=== PATIENT | female | born 1950 | race Asian ===

== ENCOUNTER 2016-12-06 15:41 | Emergency (ER) | payer MEDICARE, BC ==
[2016-12-06] MEDS ORDERED: OXYMETAZOLINE 0.05% NASAL 15 SPRAYS/15 ML BTL NASAL ONE (15:58)
--- NOTE | 2016-12-06 16:14 | ER NURSING DOCUMENTATION ---
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 Transition rh of care: Home. 15:52 Method Of Arrival: Walk In 15:55 Notified ED Physician of patient's arrival and CC Dr. Marinelli notified. nf Triage Assessment: 15:54 General: Appears in no apparent distress, Behavior is cooperative. Pain: Denies pain. rh EENT: Nares with bleeding noted bilaterally. Neuro: Level of Consciousness is awake, alert, obeys commands, Oriented to person, place, time, event. Historical: - Allergies: SULFA (SULFONAMIDES); Ciprofloxacin; - Home Meds: 1. Lisinopril Oral 2. sotalol Oral 3. Premarin Oral 4. Potassium Chloride Oral - PMHx: Hypertension; - PSHx: Hysterectomy; ; BOWEL RESECTION; - Tetanus: < 10 years. - Ebola Screening: : Patient negative for fever greater than or equal to 101.5 degrees Fahrenheit, and additional compatible Ebola Virus Disease symptoms. - Immunization history: Flu Vaccine < 1 year. - Social history: Smoking status: Patient states was never smoker of tobacco. Screenin:55 Infectious Disease Risk None. Abuse screen: Denies threats or abuse. Denies injuries rh from another. Nutritional screening: No deficits noted. Assessment: 15:55 See Triage Assessment done by same RN. Vital Signs: 15:55 BP 157 / 88; Pulse 73; Resp 16; Temp 97.3(TE); Pulse Ox 96% on R/A; Weight 63.5 kg; rh Height 5 ft. 5 in. (165.10 cm); Pain 0/10; 15:55 Body Mass Index 23.30 (63.50 kg, 165.10 cm) ED Course: 15:43 Patient arrived in ED. 15:43 Triage completed. 15:49 Ludmila Pizarro, RN is Primary Nurse. nf 15:52 Nosebleed Care Nasal Clamp Applied. 15:55 Notified ED Physician of patient's arrival and chief complaint. Dr. Marinelli notified. rh 15:55 Arm band placed on Bed in low position Call Light in Reach HOB Elevated Side rails up nf x1. 15:55 Valuables Remains with patient Patient has correct armband on for positive rh identification. Bed in low position. Call light in reach. 15:56 Door closed. Noise minimized. Lights dimmed. Moved to private room. Verbal reassurance nf given. Pillow given. Diet: Patient is NPO. 16:04 Jarred Marinelli MD is Attending Physician. tl1 Administered Medications: 15:50 Drug: Afrin Drops (0.05 %) 1 sprays; Route: Intranasal; Site: both nares; 16:09 Follow up: Response: Marked relief of symptoms nf Outcome: 16:07 Discharge ordered by . tl1 16:12 Discharged to home ambulatory. 16:12 Condition: improved 16:12 Discharge Assessment: Patient awake, alert and oriented x 3. No cognitive and/or functional deficits noted. Patient verbalized understanding of disposition instructions. 16:12 Discharge instructions given to patient, Instructed on discharge instructions, follow up and referral plans. Demonstrated understanding of instructions. 16:13 Patient left the ED. 12/07 18:27 Discharge F/U Call: Unable to reach: left voicemail: lc Signatures: Hannah Khalil RN RN lc Friel, Nicole, RN RN nf Leigh, Tom, MD MD tl1 Josefina Garner Carissa cj
--- NOTE | 2016-12-08 16:14 | ER PHYSICIAN DOCUMENTATION ---
Physician Documentation [facility] Name:Nova Pitt Age:66 yrs Sex:Female :1950 Arrival Date:12/06/2016 Time:15:41 Bed2 Private MD: Jarred Palmer Disposition: 12/08 05:44 Chart complete. tl1 Disposition: 12/06/16 16:07 Discharged to Home/Self Care. Impression: Anterior Epistaxis. - Condition is Good. - Discharge Instructions: EPISTAXIS (Adult). - Medical Reconciliation form form. - Follow up: Private Physician; When: 4- 6 days; Reason: Recheck today's complaints, Continuance of care. - Problem is new. - Symptoms have improved. HPI: 12/06 15:50 This 66 yrs old Female presents to ER via Walk In with complaints of tl1 Nose Bleed. 15:50 The patient presents with a nose bleed, that is apparently anterior. Onset: The tl1 symptom(s)/episode began/occurred suddenly, this morning. Associated signs and symptoms: The patient has no apparent associated signs or symptoms. Severity of symptoms: At their worst the symptoms were mild in the emergency department the symptoms are unchanged. The patient has experienced similar episodes in the past, several times. Historical: - Allergies: SULFA (SULFONAMIDES); Ciprofloxacin; - Home Meds: 1. Lisinopril Oral 2. sotalol Oral 3. Premarin Oral 4. Potassium Chloride Oral - PMHx: Hypertension; - PSHx: Hysterectomy; ; BOWEL RESECTION; - Tetanus: < 10 years. - Ebola Screening: : Patient negative for fever greater than or equal to 101.5 degrees Fahrenheit, and additional compatible Ebola Virus Disease symptoms. - Immunization history: Flu Vaccine < 1 year. - Social history: Smoking status: Patient states was never smoker of tobacco. ROS: 16:00 ENT: Positive for nose bleed. tl1 16:00 All other systems are negative. Exam: 16:00 Constitutional: This is a well developed, well nourished patient who is awake, alert, tl1 and in no acute distress. 16:00 Head/Face: Normocephalic, atraumatic. tl1 16:00 ENT: Nose: Nasal septum: is midline, clotted blood, in right nare. Vital Signs: 15:55 BP 157 / 88; Pulse 73; Resp 16; Temp 97.3(TE); Pulse Ox 96% on R/A; Weight 63.5 kg; rh Height 5 ft. 5 in. (165.10 cm); Pain 0/10; 15:55 Body Mass Index 23.30 (63.50 kg, 165.10 cm) rh Procedures: 16:00 Epistaxis treatment: A small amount of bleeding noted from right nare. Treated using tl1 Oxymetazoline sprays, direct pressure, nasal clamp, Bleeding stopped. MDM: 16:00 Data reviewed: vital signs, nurses notes, and as a result, I will discharge patient. tl1 Counseling: I had a detailed discussion with the patient and/or guardian regarding: the historical points, exam findings, and any diagnostic results supporting the discharge/admit diagnosis, the need for outpatient follow up, an ENT specialist, to return to the emergency department if symptoms worsen or persist or if there are any questions or concerns that arise at home. Response to treatment: the patient's symptoms have resolved after treatment, and as a result, I will discharge patient. 16:04 Patient medically screened. tl1 Dispensed Medications: 15:50 Drug: Afrin Drops (0.05 %) 1 sprays; Route: Intranasal; Site: both nares; 16:09 Follow up: Response: Marked relief of symptoms nf Signatures: Jarred Marinelli MD MD tl1 Josefina Garner Ludmila Pizarro RN nf
== END 2016-12-06 16:14 | disposition home or self-care (01) ==
LOC: ER 15:41
DX: R04.0 Epistaxis (principal); I10 Essential (primary) hypertension; Z79.899 Other long term (current) drug therapy
CPT/HCPCS: 30901; 99282; 99283